=== PATIENT | female | born 1995 | race Caucasian/White ===

== ENCOUNTER 2024-08-02 16:22 | Emergency (ER) | payer BC, SELFPAY ==
--- OUTSIDE RECORDS SUMMARY | 2024-08-02 16:26 | XMS_ITS | Encounter Summary ---
Author Organization [facility] Address [facility] [address] Care Team Providers Care Ship Wirer Name Role Phone Domo Suarez MD Unavailable Elizabeth Dempsey Primary Care Provider [phone] Encounter Details Date Type Department Care Team (Late st Contact Info) Description 06/28/2023 YouFetch Message Enc [facility]hab [address] [place], [place] [id number] [facility] Provider Physical Therapy Social History Tobacco Use Types Packs/Day Years Used Date Smoking Tobacco: Never Passive Smoke Exposure: Never Smokeless Tobacco: Never Alcohol Use Standard Drinks/Week Comments Not Currently 0 (1 standard drink = 0.6 oz pur e alcohol) PHQ-2 Answer Date Recorded Patient Health Questionnaire-2 Score 0 12/01/2022 Depression Answer Date Recor ded Last EPDS Total Score 0 01/08/2021 Last EPDS Self Harm Result Never 01/08 Comments No Sex and Gender Information Value Date Recorded Sex Assigned at Not on file Legal Sex Female 3:30 AM CDT Gender Identity Not on file Sexual Orientation Not on file 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 Answer Date of Assessment Author Status No 05/27/2021 3:42 PM REELING OPERATOR Activ e * Do you have serious difficulty walking or climbing stairs? Answer Date of Assessment Author Status No 05/27/2021 3:42 PM Jacinta Duvall RN Active * Do you have difficulty dressing or bathing? Answer Date of Assessment Author Status No 05/27/2021 3:42 PM Jacinta Duvall RN Active * Because of a physical, mental, or emotional condition, do you have difficulty doing errands alone such as visiting a doctor's office or shopping? Answer Date of Assessment Author Status No 05/27/2021 3:42 PM Jacinta Duvall RN Active documented as of this encounter Mental Status * Because of a physical, mental, or emotional condition, do you have serious difficulty concentrating, remembering, or making decisions? Answer Entry Date Author Status No 05/27/2021 3:42 PM Jacinta Duvlal RN Active documented in this encounter Plan of Treatment Upcoming Encounters Date Type Department Care Team (Late st Contact Info) Description 08/16/2024 11:45 AM REELING OPERATOR [facility] [address] [place] [address] [address] Brown PA-C [facility] [address] [place], [place] [address] 10/15/2024 9:30 AM CDT Office Visit [facility] [address] [place], [place] [address] Supa Miranda MD [facility]. [facility] [address] [place], [place] [address] documented as of this encounter Goals Goal Patient Goal Type Associated Problems Recent Progress Patient-Stated? Author Safety Patient/family will have appropriate support at home upon discharge General No Lucila Corey RN documented as of this encounter Visit Diagnoses Not on filedocumented in this encounter Care Teams Ship Wirer Relationship Specialty Start Date End Date Elizabeth Dempsey PA Three [facility]. [address] [place], [place] [phone] PCP - General PHYSICIAN FOREST FIRE EQUIPMENT OPERATOR 05/10/18 Domo Suarez MD [facility] [address] [place], [place] [address] Norris Quality Control Inspector CARDIOVASCULAR DISEASE 11/25/15 documented as of this encounter
--- OUTSIDE RECORDS SUMMARY | 2024-08-02 16:26 | XMS_ITS | Encounter Summary ---
Author Organization [facility] [place] [address] Care Team Providers Care Manager Loss Prevention Name Role Phone Issac Escoto MD Primary Care Provider Unavailable Domo Suarez MD Unavailable Elizabeth Dempsey Primary Care Provider Encounter Details Date Type Department Care Team (Late st Contact Info) Description 07/13/2002 Abstract [facility] Clinics Conversion , Generic Conversion, Social History Tobacco Use Types Packs/Day Years Used Date Smoking Tobacco: Never Assessed Comments Unknown Sex and Gender Information Value Date Recorded Sex Assigned at Not on file Legal Sex Female 3:30 AM CDT Gender Identity Not on file Sexual Orientation Not on file documented as of this encounter Plan of Treatment Upcoming Encounters Date Type Department Care Team (Late st Contact Info) Description 08/16/2024 11:45 AM STATION AIR TRAFFIC CONTROL SPECIALIST Office [facility] THREE [facility], [address] [place], [place] [phone] Valentine Brown PA-C Three [facility] [address] [place], [place] [phone] 10/15/2024 9:30 AM CDT Office Visit [facility], [address] [place], [place] [phone] Supa Miranda MD [facility]. [address] [place], [place] [address] documented as of this encounter Visit Diagnoses Not on filedocumented in this encounter Care Teams Manager Loss Prevention Relationship Specialty Start Date End Date Issac Escoto MD PCP - General FAMILY PRACTICE 11/25/15 05/09/18 Elizabeth Dempsey PA [facility]. [address] [place] [address] PCP - General PHYSICIAN AUTO DAMAGE ESTIMATOR 05/10/18 Domo Suarez MD [facility]. [address] [place] [address] Basil Drill Sergeant CARDIOVASCULAR DISEASE 11/25/15 documented as of this encounter
--- OUTSIDE RECORDS SUMMARY | 2024-08-02 16:26 | XMS_ITS | Encounter Summary ---
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 Answer Date of Assessment Author Status No 05/27/2021 3:42 PM ASSISTANT PROFESSOR OF COMMUNICATION Activ e * Do you have serious [...] 3:42 PM Jacinta Duvall RN Active documented in this encounter Plan of Treatment Upcoming Encounters Date Type Department Care Team (Late st Contact Info) Description 08/16/2024 11:45 AM ASSISTANT PROFESSOR OF COMMUNICATION Office [facility] [address] [place] [address] Valentine Borwn PA-C [facility] [address] [place], [place] [address] 10/15/2024 9:30 AM CDT Office [facility], [facility] [address] [place], [place] [address] Supa Miranda MD [facility]. [facility] [address] [place], [place] [address] documented as of this encounter Goals Goal Patient Goal Type Associated Problems Recent Progress Patient-Stated? Author Safety Patient/family will have appropriate support at home upon discharge General No Lucila Corey RN documented as of this encounter Visit Diagnoses Not on filedocumented in this encounter Care Teams Jammer Hooker Relationship Specialty Start Date End Date Elizabeth Dempsey PA Three [facility]. [address] [place], [place] [phone] PCP - General PHYSICIAN MOLDER MEAT 05/10/18 Domo Suarez MD Three [facility] [address] [place], [place] [address] [employer] Drill Operator CARDIOVASCULAR DISEASE 11/25/15 documented as of this encounter
--- OUTSIDE RECORDS SUMMARY | 2024-08-02 16:26 | XMS_ITS | Encounter Summary ---
Author Organization [facility] Address [facility] [place] [address] Care Team Providers Care Sterile Process Tech Name Role Phone Domo Suarez MD Unavailable Elizabeth Dempsey Primary Care Provider [phone] Encounter Details Date Type Department Care Team (Late st Contact Info) Description 12/21/2022 MyChart Message Enc [facility] [address] [place], [place] [address] [employer], [facility] Provider Air Quality Message Social History Tobacco Use Types Packs/Day Years [...] 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 No / Unsure 12/01/2022 12:54 PM CDT documented as of this encounter Functional Status * RETIRED Are you deaf or do you have serious difficulty hearing Answer Date of Assessment Author Status No 05/27/2021 3:42 PM LEGAL RECORDS MANAGER Activ e * RETIRED Are you blind or do you have serious difficulty seeing, even when wearing glasses? Answer Date of Assessment Author Status No 05/27/2021 3:42 PM LEGAL RECORDS MANAGER Activ e * Do you have serious [...] st Contact Info) Description 08/16/2024 11:45 AM LEGAL RECORDS MANAGER Office Visit [facility] [place] [address] [place] [address] Valentine Brown PA-C [facility] [address] [place] [address] 10/15/2024 9:30 AM CDT Office Visit [facility] [place] [address] [place], [place] [address] Supa Miranda MD [facility]. [place] [address] [place], [place] [address] documented as of this encounter Goals Goal Patient Goal Type Associated Problems Recent Progress Patient-Stated? Author Safety Patient/family will have appropriate support at home upon discharge General No Lucila Corey, JUMA documented as of this encounter Visit Diagnoses Not on filedocumented in this encounter Care Teams Sterile Process Tech Relationship Specialty Start Date End Date Elizabeth Dempsey PA [facility]. [place] [address] [place], [place] [phone] PCP - General PHYSICIAN DIRECTOR OF CASINO MARKETING 05/10/18 Domo Suarez MD [facility]. [address] [place], [place] [phone] Basil Cake Press Operator CARDIOVASCULAR DISEASE 11/25/15 documented as of this encounter
--- OUTSIDE RECORDS SUMMARY | 2024-08-02 16:26 | XMS_ITS | Encounter Summary ---
Author Organization [facility] Address [address] [place] [address] Care Team Providers Care First Officer Name Role Phone Domo Suarez MD Unavailable Elizabeth Dempsey Primary Care Provider [phone] Reason for Visit * Reason Onset Date Comments Medication 07/22/2024 Encounter Details Date Type Department Care Team (Late st Contact Info) Description 07/22/[address] [address] [place] [address] Elizabeth Dempsey PA [address] [place] [address] Medication Social History Tobacco Use Types Packs/Day Years Used Date Smoking Tobacco: Never Passive Smoke Exposure: Never Smokeless Tobacco: Never Alcohol Use Standard Drinks/Week Comments Not Currently 0 (1 standard drink = 0.6 oz pur e alcohol) PHQ-2 Answer Date Recorded Patient Health Questionnaire-2 Score 0 07/22/2024 Depression Answer Date Recor ded Last EPDS Total Score 0 01/08/2021 Last EPDS Self Harm Result Never 01/08 Comments No Sex and Gender Information Value Date Recorded Sex Assigned at Not on file Legal Sex Female 3:30 AM CDT Gender Identity Not on file Sexual Orientation Not on file 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 Answer Date of Assessment Author Status No 05/27/2021 3:42 PM LOOM INSPECTOR Activ e * Do you have serious difficulty walking or climbing stairs? Answer Date of Assessment Author Status No 05/27/2021 3:42 PM LOOM INSPECTOR Jacinta Solis RN Active * Do you have difficulty dressing or bathing? Answer Date of Assessment Author Status No 05/27/2021 3:42 PM LOOM INSPECTOR Jacinta Solis RN Active * Because of a physical, mental, or emotional condition, do you have difficulty doing errands alone such as visiting a doctor's office or shopping? Answer Date of Assessment Author Status No 05/27/2021 3:42 PM LOOM INSPECTOR Jacinta Solis RN Active documented as of this encounter Mental Status * Because of a physical, mental, or emotional condition, do you have serious difficulty concentrating, remembering, or making decisions? Answer Entry Date Author Status No 05/27/2021 3:42 PM LOOM INSPECTOR Jacinta Solis RN Active documented in this encounter Progress Notes * Orly Matamoros LPN - 07/22/2024 2:50 PM CST Jacinta from [facility] called pt is checking on status of AB from [facility] from [facility] today INSPECTOR * Aaliyah Shaw - 07/22/2024 11:58 AM CST Patient called at 1156 am, and said that she was seen this am around 0840 am, and her pharmacy still does not have her medication. Can someone please look into this and let the patient know when it is sent. INSPECTOR documented in this encounter Plan of Treatment Upcoming Encounters Date Type Department Care Team (Late st Contact Info) Description 08/16/2024 11:45 AM LOOM INSPECTOR Office Visit [facility], [address] [place] [address] Valentine Brown PA-C Three [facility] [address] [place] [address] 10/15/2024 9:30 AM CDT Office Visit [facility] THREE [facility], [address] [place] [address] Supa Miranda MD Three [facility]. [address] [place], [place] [address] documented as of this encounter Goals Goal Patient Goal Type Associated Problems Recent Progress Patient-Stated? Author Safety Patient/family will have appropriate support at home upon discharge General No Lucila Corey RN documented as of this encounter Visit Diagnoses Not on filedocumented in this encounter Care Teams First Officer Relationship Specialty Start Date End Date Elizabeth Dempsey PA Three [facility]. [facility] [address] [place], [place] [address] PCP - General PHYSICIAN HAND MOLDER MEAT 05/10/18 Domo Suarez MD [facility]. [facility] [address] [place] [address] Sumner Meat Puller CARDIOVASCULAR DISEASE 11/25/15 documented as of this encounter
--- OUTSIDE RECORDS SUMMARY | 2024-08-02 16:26 | XMS_ITS | Encounter Summary ---
Author Organization [facility] Address [facility] [place] [address] Care Team Providers Care Applied Exercise Physiologist Name Role Phone Issac Escoto MD Primary Care Provider Unavailable Domo Suarez MD Unavailable Elizabeth Dempsey Primary Care Provider [phone] Encounter Details Date Type Department Care Team (Late st Contact Info) Description 12/22/2008 Abstract [facility] Clinics Conversion , Generic Conversion, Social History [...] st Contact Info) Description 08/16/2024 11:45 AM MANAGER DATA Office Visit [facility] THREE [facility], [address] [place], [place] [phone] Valentine Brown PA-C Three [facility] [address] [place], [place] [phone] 10/15/2024 9:30 AM CDT Office Visit [facility], [address] [place], [place] [phone] Supa Miranda MD [facility]. [address] [place], [place] [address] documented as of this encounter Visit Diagnoses Not on filedocumented in this encounter Care Teams Applied Exercise Physiologist Relationship Specialty Start Date End Date Issac Escoto MD PCP - General FAMILY PRACTICE 11/25/15 05/09/18 Elizabeth Dempsey PA [facility]. [address] [place] [address] PCP - General PHYSICIAN TUBE LASER OPERATOR 05/10/18 Domo Suarez MD [facility]. [address] [place] [address] Basil Grinding Room Supervisor CARDIOVASCULAR DISEASE 11/25/15 documented as of this encounter
--- OUTSIDE RECORDS SUMMARY | 2024-08-02 16:26 | XMS_ITS | Encounter Summary ---
Author Organization [facility] Address [facility] [place] [address] Care Team Providers Care Integration Architect Name Role Phone Issac Escoto MD Primary Care Provider Unavailable Domo Suarez MD Unavailable Elizabeth Dempsey Primary Care Provider [phone] Encounter Details Date Type Department Care Team (Late st Contact Info) Description 01/05/2009 Abstract [facility] Clinics Conversion , Generic Conversion, Social History [...] st Contact Info) Description 08/16/2024 11:45 AM STORAGE BATTERY INSPECTOR AND TESTER Office [facility] THREE [facility], [address] [place], [place] [phone] Valentine Brown PA-C Three [facility] [address] [place], [place] [phone] 10/15/2024 9:30 AM CDT Office [facility], [address] [place], [place] [phone] Supa Miranda MD [facility]. [address] [place], [place] [phone] documented as of this encounter Visit Diagnoses Not on filedocumented in this encounter Care Teams Integration Architect Relationship Specialty Start Date End Date Issac Escoto MD PCP - General FAMILY PRACTICE 11/25/15 05/09/[address] [facility]. [address] [place] [address] PCP - General PHYSICIAN LIBRARY CLERK 05/10/[address] [facility]. [address] [place] [address] Basil Mechatronics Technician CARDIOVASCULAR DISEASE 11/25/15 documented as of this encounter
--- OUTSIDE RECORDS SUMMARY | 2024-08-02 16:26 | XMS_ITS | Encounter Summary ---
Author Organization [facility] Address [address] [place] [address] Care Team Providers Care Tea Plantation Worker Name Role Phone Domo Suarez MD Unavailable Elizabeth Dempsey Primary Care Provider [phone] Encounter Details Date Type Department Care Team (Late st Contact Info) Description 10/27/2022 [employer] Message [address] [address] [facility] Schedule Appointment for Annual Physical Social History Tobacco Use Types Packs/Day Years Used Date Smoking Tobacco: Never Passive Smoke Exposure: Never Smokeless Tobacco: Never Alcohol Use Standard Drinks/Week Comments Not Currently 0 (1 standard drink = 0.6 oz pur e alcohol) PHQ-2 Answer Date Recorded Patient Health Questionnaire-2 Score 0 10/17/2022 Depression Answer Date Recor ded Last EPDS Total Score 0 01/08/2021 Last EPDS Self Harm Result Never 01/08 Comments No Sex and Gender Information Value Date Recorded Sex Assigned at Not on file Legal Sex Female 3:30 AM CDT Gender Identity Not on file Sexual Orientation Not on file 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 No / Unsure 10/17/2022 6:54 AM CDT documented as of this encounter Functional Status * RETIRED Are you deaf or do you have serious difficulty hearing Answer Date of Assessment Author Status No 05/27/2021 3:42 PM COMPUTER SCIENTIST Activ e * RETIRED Are you blind or do you have serious difficulty seeing, even when wearing glasses? Answer Date of Assessment Author Status No 05/27/2021 3:42 PM COMPUTER SCIENTIST Activ e * Do you have serious [...] st Contact Info) Description 08/16/2024 11:45 AM COMPUTER SCIENTIST Office Visit [facility] [address] [place], [place] [address] Valentine Brown PA-C [facility] [address] [place], [place] [address] 10/15/2024 9:30 AM CDT Office [facility] [address] [place], [place] [address] Supa Miranda MD [facility]. [facility] [address] [place], [place] [address] documented as of this encounter Goals Goal Patient Goal Type Associated Problems Recent Progress Patient-Stated? Author Safety Patient/family will have appropriate support at home upon discharge General No Lucila Corey RN documented as of this encounter Visit Diagnoses Not on filedocumented in this encounter Care Teams Tea Plantation Worker Relationship Specialty Start Date End Date Elizabeth Dempsey PA [facility]. [facility] [address] [facility], [place] [phone] PCP - General PHYSICIAN SAMPLE SAWYER 05/10/18 Domo Suarez MD [facility]. [facility] [address] [place], [place] [phone] Basil Religious Education Coordinator CARDIOVASCULAR DISEASE 11/25/15 documented as of this encounter
--- OUTSIDE RECORDS SUMMARY | 2024-08-02 16:26 | XMS_ITS | Encounter Summary ---
Author Organization [facility] Address [address] [place] [address] Care Team Providers Care Flight Manager Name Role Phone Domo Suarez MD Unavailable Elizabeth Dempsey Primary Care Provider [phone] Encounter Details Date Type Department Care Team (Late st Contact Info) Description 02/07/2024 Hospital Orders Only [facility] Poolroom/Poolhall Manager [place], [place] [id number] Melody Miranda MD [facility]. 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 Answer Date of Assessment Author Status No 05/27/2021 3:42 PM MARKING DEVICES ASSEMBLER Activ e * Do you have serious [...] Duvall RN Active documented in this encounter H&P Notes * Melody Miranda MD - 02/07/2024 8:09 PM CDT Attending Provider: No att. providers found PCP: KURT GABRIEL Ana Cooper is an 28-year-old female. Reason for Admission: * No active hospital problems. * Chief complaint: Palpitations. This is a referral from KURT Gabriel Assessment and plan: In summary, Ana Cooper is here today for evaluation regarding palpitations. She has had worsening shortness of breath with exertion as well as palpitations. She has a diagnoesis of moderate to severe MR on TTE with prolapse. Will order AMBER to assess MV. Awaiting MCOT results - her palpitations may be related to MV and need to screen for AF. We will see her back in 3 months to reassess. Thank you for this interesting consultation. History of present illness: I had the pleasure of seeing your patient,Ana Cooper, for evaluation of palpitations. As you are aware, she is a 28-year-old female with a history of mitral regurgitation and palpitations. She has noted palpitations and increased tachycardia. She notes that her exertional tolerance is slightly worse. She denies PND, orthopnea, LE edema, cough, hemoptysis. Past Medical History: Diagnosis Date Asthma (HHS/HCC) 06/30/2014 exercise induced Cellulitis of nares Chondromalacia, patella right knee Exercise-induced asthma (HHS/HCC) Mitral regurgitation Murmur Nephrolithiasis Nonrheumatic mitral (valve) prolapse Preeclampsia (HHS/HCC) Preeclampsia (HHS/HCC) Varicella Allergies: Review of patient's allergies indicates: No Known Allergies Social History Tobacco Use Smoking status: Never Passive exposure: Never Smokeless tobacco: Never Substance Use Topics Alcohol use: Not Currently Past Surgical History: Procedure Laterality Date TONSILLECTOMY 2010 Family History Problem Relation Name Age of Onset Hypertension Mother Rheumatoid Arthritis Mother Lupus Mother Hyperlipidemia Father Anxiety Father Asthma Father Other (bipolar) Father Diabetes Maternal Grandmother Kidney Stones Maternal Grandmother Heart Attack Maternal Grandfather Other (peptic ulcer) Maternal Grandfather Kidney Stones Paternal Grandmother Parkinson's Disease Paternal Grandfather CHF Paternal Grandfather Rheumatoid Arthritis Maternal Aunt Thyroid Paternal Aunt Travel Exposure: Current Outpatient Medications on File Prior to Visit Medication Sig metoprolol succinate ER (TOPROL XL) 25 MG 24 hr tablet Take 1 tablet (25 mg total) by mouth daily. Multiple Vitamin (MULTIVITAMIN ADULT OR) Saccharomyces boulardii (PROBIOTIC) 250 MG Cap Take 1 capsule by mouth daily. probiotic No current facility-administered medications on file prior to visit. currently . Review of Systems Constitutional: Negative for chills, fever, malaise/fatigue and weight loss. Eyes: Negative for blurred vision and double vision. Physical Exam Constitutional: General: She is not in acute distress. Appearance: She is well-developed. HENT: Nose: No mucosal edema. Mouth/Throat: Pharynx: No oropharyngeal exudate. Neck: Vascular: No carotid bruit or JVD. Cardiovascular: Rate and Rhythm: Normal rate and regular rhythm. No extrasystoles are present. Heart sounds: S1 normal and S2 normal. No murmur heard. No gallop. Pulmonary: Effort: Pulmonary effort is normal. No respiratory distress. Breath sounds: Normal breath sounds. Abdominal: Palpations: There is no mass. Tenderness: There is no abdominal tenderness. Musculoskeletal: General: No deformity. Cervical back: Neck supple. Right lower leg: No edema. Left lower leg: No edema. Skin: General: Skin is warm and dry. Findings: No erythema. Neurological: Mental Status: She is alert and oriented to person, place, and time. Psychiatric: Behavior: Behavior normal. Thought Content: Thought content normal. MELODY MIRANDA MD 02/07/2024 documented in this encounter Plan of Treatment Upcoming Encounters Date Type Department Care Team (Late st Contact Info) Description 08/16/2024 11:45 AM MARKING DEVICES ASSEMBLER Office Visit [facility], [address] [place], [place] [id number] Valentine Brown PA-C [facility] [address] [place], [place] [id number] 10/15/2024 9:30 AM CDT Office Visit [facility], [address] [place], [place] [id number] Melody Miranda MD [facility]. [address] [place], [place] [id number] documented as of this encounter Goals Goal Patient Goal Type Associated Problems Recent Progress Patient-Stated? Author Safety Patient/family will have appropriate support at home upon discharge General Lucila Valles RN documented as of this encounter Visit Diagnoses Not on filedocumented in this encounter Care Teams Flight Manager Relationship Specialty Start Date End Date Elizabeth Dempsey PA [facility]. [address] [place], [place] [address] PCP - General PHYSICIAN SUPERVISOR HANGING AND TRIMMING 05/10/18 Domo Suarez MD [facility]. [address] [place] [address] Basil Application Security Architect CARDIOVASCULAR DISEASE 11/25/15 documented as of this encounter
--- OUTSIDE RECORDS SUMMARY | 2024-08-02 16:27 | XMS_ITS | Clinical Summary ---
Author Organization [facility] Address [address] [place] [address] Care Team Providers Care Food Safety Director Name Role Phone Elizabeth Dempsey Primary Care Provider [phone] Source Comments [facility],non-owned Affiliates and Associated Physician Practices is amultiple site organization consisting of ambulatory clinics and hospital sitesin [place], [place], [place] and [place]. This disclosure is being madepursuant to the Care Everywhere program and may not contain all information available regarding this patient. Last updated 18.[facility] Allergies No known active allergies Medications * Be aware that medications may not be up to date on this document. Alwaysverify current medications with the patient. Medication Sig Dispensed Refills Start Date End Date Status etodolac (LODINE) 400 MG tablet Take 400 mg by mouth 2 times daily. Active amoxicillin-clavulana te (AUGMENTIN) 875-125 MG tablet Take 875 mg by mouth 2 times daily with breakfast and dinner. Active Social History Tobacco Use Types Packs/Day Years Used Date Smoking Tobacco: Never Assessed Sex and Gender Information Value Date Recorded Sex Assigned at Not on file Gender Identity Not on file Sexual Orientation Not on file Last Filed Vital Signs Vital Sign Reading Time Taken Comments Blood Pressure 130/74 01/27/2022 12:27 PM CDT Pulse 81 01/27/2022 12:27 PM CDT Temperature 37.1 C (98.7 F) 01/27/2022 12:27 PM CDT Respiratory Rate 18 01/27/2022 12:27 PM CDT Oxygen Saturation 97% 01/27/2022 12:27 PM CDT Inhaled Oxygen Concentration - - Weight 64.9 kg (143 lb) 01/27/2022 12:27 PM CDT Height 162.6 cm (5' 4 ) 01/27/2022 12:27 PM CDT Body Mass Index 24.55 01/27/2022 12:27 PM CDT Plan of Treatment Health Maintenance Due Date Last Done Comments PAP SMEAR 1995 HIV SCREENING 2010 HEPATITIS C SCREENING 02/09/2013 DTAP/TDAP/TD VACCINES (1 - Tdap) 2014 HEPATITIS B VACCINE (1 of 3 - 19+ 3-dose series) 2014 COVID-19 VACCINE (2 - 2023-2 5 season) 2024 05/25/2021 INFLUENZA VACCINE (#1) 2024 5, 04/19/2011 DEPRESSION SCREENING 06/26/2024 ZOSTER VACCINE (1 of 2) 2045 HIB VACCINE Aged Out No longer eligi ble based on patient's age to complete this topic HPV VACCINE Aged Out No longer eligi ble based on patient's age to complete this topic MENINGOCOCCAL (Group B) VACCINE Aged Out No longer eligible b ased on patient's age to complete this topic MENINGOCOCCAL VACCINE Aged Out No leslie avis eligible based on patient's age to complete this topic PNEUMOCOCCAL VACCINE Aged Out No long er eligible based on patient's age to complete this topic Care Teams Food Safety Director Relationship Specialty Start Date End Date Elizabeth Dempsey PA [address] [address] PCP - General Physician Hematologist 01/27/22
--- OUTSIDE RECORDS SUMMARY | 2024-08-02 16:27 | XMS_ITS | Clinical Summary ---
Author Organization [facility] Address [address] [place] [address] Phone Care Team Providers Care Fabric Worker Supervisor Name Role Phone [facility], External Provider Primary Care Provider U navailable Allergies No known active allergies Medications multivitamin (DAILY-JOSE ARMANDO) tablet Take 1 Tablet by mouth daily. Active L. acidophilus/L. rhamnosus (PROBIOTIC ORAL) Take by mouth. Active progesterone micronized (Prometrium) 200 mg Capsule Take one capsule (200mg) by mouth at bedtime on cycle day 18-. 30 Capsule 3 08/02/2024 Active Active Problems Patient Care Coordination No te Formatting of this note migh t be different from the original. Gabe Leach MD--Communications Writer ([facility] @ ) Problem Noted Date Diagnosed Date Mass of upper inner quadrant of right breast Mitral valve prolapse 02/21/2019 Chest pain 02/21/2019 Encounters Date Type Department Care Team Description 08/02/2024 10:00 AM CUSTOMER SPECIALIST Office Visit [facility] AUTOMATIC TYPEWRITER INSPECTOR - [address] [address] Judie Valverde MD PCOS (polycystic ovarian syndrome) (Primary Dx); Oligomenorrhea, unspecified type; Hirsutism; Overweight (BMI 25.0-29.9) from Last 3 Months Immunizations Immunization Administration Dates Next Due (KINRIX/QUADRACEL)(4 - 6 YRS ) DIPHTHERIA, TETANUS TOXOIDS AND ACELLULAR PERTUSSIS VACCINE, POLIO, INACTIVATED (DTAP-IPV) (PF) IM 02/19/2001 (PEDIARIX)(6 WKS-6 YRS) DIPT HERIA, TETANUS TOXOIDS, ACELLULAR PERTUSSIS, HEPATITIS B, AND INACTIVATED POLIOVIRUS VACCINE (FEDB-AIAY-NHW), 0.5ML, IM 02/19/2001,06/11/1996,1995,1994,1995,1995,1995 (PROQUAD)(12 MOS-12 YRS)SHANDRA LES, MUMPS, RUBELLA, AND VARICELLA VIRUS VACCINE. 0.5 ML, SUBCUT 04/10/2015,02/19/2001,06/11/1996 Hepatitis B Vaccine 1995,1995,1994 Family History Medical History Relation Name Comments Bipolar Disorder Father Heart Attack Maternal Grandfather Breast Cancer Neg Hx Colon Cancer Neg Hx Relation Name Status Comments Father Alive Maternal Grandfather Mother Alive Social History Tobacco Use Types Packs/Day Years Used Date Smoking Tobacco: Never Alcohol Use Standard Drinks/Week Comments Yes 0 (1 standard drink = 0.6 oz pur e alcohol) rarely Comments No Sex and Gender Information Value Date Recorded Sex Assigned at Not on file Legal Sex Female 10:12 AM CDT Gender Identity Not on file Sexual Orientation Not on file Last Filed Vital Signs Vital Sign Reading Time Taken Comments Blood Pressure 130/80 08/02/2024 10:06 AM CUSTOMER SPECIALIST Pulse 97 09/03/2021 9:22 AM CUSTOMER SPECIALIST Temperature 37.2 C (99 F) 09/03/2021 9:22 AM CUSTOMER SPECIALIST Respiratory Rate 15 09/03/2021 9:22 AM CUSTOMER SPECIALIST Oxygen Saturation 98% 09/03/2021 9:22 AM CUSTOMER SPECIALIST Inhaled Oxygen Concentration - - Weight 78 kg (172 lb) 08/02/2024 10:06 AM CUSTOMER SPECIALIST Height 162.6 cm (5' 4 ) 08/02/2024 10:06 AM CUSTOMER SPECIALIST Body Mass Index 29.52 08/02/2024 10:06 AM CUSTOMER SPECIALIST Plan of Treatment Upcoming Encounters Date Type Department Care Team (Late st Contact Info) Description 11/29/2024 12:15 PM CDT Office Visit [facility] AUTOMATIC TYPEWRITER INSPECTOR - [address] [place] [address] [place] [address] [address] [place] [address] [phone] (work) Health Maintenance Due Date Last Done Comments CERVICAL CANCER SCREENING 02/15/2016 INFLUENZA VACCINE (#1) 2024 COVID-19 Vaccine (2 2023-2 5 season) 2024 05/25/2021 DTAP/TDAP/TD VACCINES (8 - T d or Tdap) 04/10/2025 04/10/2015, 01/11/2010, 02/19/2001, Additional history exists HEPATITIS B VACCINES Completed 02/19/2001, 06/11/1996, 1995, Additional history exists HPV VACCINES Completed 08/15/2008, 03/27, 02/13/2008 Insurance [employer] TRADITIONAL [facility] EPO Care Teams Fabric Worker Supervisor Relationship Specialty Start Date End Date [facility], External Provider [address] [place] [address] PCP - General 02/21/19
--- OUTSIDE RECORDS SUMMARY | 2024-08-02 16:27 | XMS_ITS | Encounter Summary ---
Author Organization [facility] Address [facility] [place] [address] Care Team Providers Care Real Estate Agency Licensee Name Role Phone Issac Escoto MD Primary Care Provider Unavailable Domo Suarez MD Unavailable Elizabeth Dempsey Primary Care Provider [phone] Encounter Details Date Type Department Care Team (Late st Contact Info) Description 07/10/2015 Abstract [facility] CONVERSION [address] [place] [address] , Generic ConversionMD Social History Tobacco Use Types Packs/Day Years Used Date Smoking Tobacco: Never Comments Unknown Sex and Gender Information Value Date Recorded Sex Assigned at Not on file Legal Sex Female 3:30 AM CDT Gender Identity Not on file Sexual Orientation Not on file documented as of this encounter Plan of Treatment Upcoming Encounters Date Type Department Care Team (Late st Contact Info) Description 08/16/2024 11:45 AM POST CLOSER Office Visit [facility], [address] [place], [place] [phone] Valentine Brown PA-C [facility] [address] [place], [place] [address] 10/15/2024 9:30 AM CDT Office Visit [facility], [address] [place] [address] Supa Miranda MD Three [facility]. [address] [place] [address] documented as of this encounter Visit Diagnoses Not on filedocumented in this encounter Care Teams Real Estate Agency Licensee Relationship Specialty Start Date End Date Issac Escoto MD PCP - General FAMILY PRACTICE 11/25/15 05/09/18 Elizabeth Dempsey PA Three [facility]. [facility] [address] [place] [address] PCP - General PHYSICIAN COMPLIANCE TESTING ANALYST 05/10/18 Domo Suarez MD [facility]. [facility] [address] [place] [address] Orlando Tar Heater CARDIOVASCULAR DISEASE 11/25/15 documented as of this encounter
--- OUTSIDE RECORDS SUMMARY | 2024-08-02 16:27 | XMS_ITS | Patient Health Summary ---
Author Organization [facility] Address [address] [place] [address] Care Team Providers Care Raisin Washer Name Role Phone Elizabeth Dempsey Primary Care Provider [phone] Note from Formerly named [facility],non-owned Affiliates and Associated Physician Practices is amultiple site organization consisting of ambulatory clinics and hospital sitesin [place], [place], [place] and [place]. This disclosure is being madepursuant to the Care Everywhere program and may not contain all information available regarding this patient. Last updated 18.[facility] Allergies No known active allergies Medications * Be aware that medications may not be up to date on this document. Alwaysverify current medications with the patient. * etodolac (LODINE) 400 MG tablet Take 400 mg by mouth 2 times daily. * amoxicillin-clavulanate (AUGMENTIN) 875-125 MG tablet Take 875 mg by mouth 2 times daily with breakfast and dinner. Social History Tobacco Use Types Packs/Day Years [...] Mass Index 24.55 01/27/2022 12:27 PM CDT Procedures * CARDIAC EKG ORDER(Performed 01/30/2022) * XR CHEST 2VW(Performed 01/27/2022) Performed for Chest pain, unspecified type * URINALYSIS REFLEX MICROSCOPIC REFLEX CULTURE(Performed 01/27/2022) * TROPONIN I(Performed 01/27/2022) * COMPREHENSIVE METABOLIC PANEL(Performed 01/27/2022) * CBC W AUTO DIFFERENTIAL(Performed 01/27/2022) * EKG 12-LEAD(Performed 01/27/2022) Performed for Chest pain, unspecified type * XR ANKLE LEFT 2VW(Performed 02/08/2010) Performed for Pain in Joint, Ankle and Foot * XR ANKLE RIGHT 2VW(Performed 02/08/2010) Performed for Pain in Joint, Ankle and Foot Results * CARDIAC EKG ORDER (01/30/2022 6:07 PM CDT) Narrative 01/30/2022 6:07 PM CDT Ordered by an unspecified provider. Scanned Document CARDIAC SERVICES ORD ERABLES * XR CHEST PA AND LATERAL (01/27/2022 1:30 PM CDT) Anatomical Region Laterality Modality Chest Radiographic Odalis ging 01/27/2022 1:40 PM CDT Impressions 01/27/2022 1:40 PM CDT IMPRESSION: No active disease. > Interpreting Provider: Tin Lopez on 01/27/2022 1:40 PM Narrative 01/27/2022 1:40 PM CDT PROCEDURE: XR CHEST 2VW, DATE/TIME OF EXAM: 01/27/2022 1:39 PM, LOCATION [facility] INDICATION: Chest pain. Shortness of breath. Findings: There are no old studies available for comparison. The lungs are clear of infiltrate. There are no pleural effusions or pneumothorax. The heart size and pulmonary vascularity are normal. Procedure Note Tin Lopez MD - 01/27/2022 PROCEDURE: XR CHEST 2VW, DATE/TIME OF EXAM: 01/27/2022 1:39 PM, LOCATION [facility] INDICATION: Chest pain. Shortness of breath. Findings: There are no old studies available for comparison. The lungsare clear of infiltrate. There are no pleural effusions or pneumothorax. The heart size and pulmonary vascularity are normal. IMPRESSION: No active disease. > Interpreting Provider: Tin Lopez on 01/27/2022 1:40 PM Velvet Madison Anuja SLIDE FORMING MACHINE TENDER-BARREL LATHE OPERATOR INSIDE DIAGNOSTIC IMAG ING ORDERABLES * URINALYSIS REFLEX MICROSCOPIC REFLEX CULTURE (01/27/2022 1:14 PM CDT) Color UA Yellow Straw, Yellow 01/27/2022 1:22 PM CDT [facility] Clarity UA Clear Clear 01/27/2022 1:22 PM CDT [facility] Glucose UA Negative Negative 01/27/2022 1:22 PM CDT [facility] Bilirubin UA Negative Negative 01/27/2022 1:22 PM CDT [facility] Ketone UA Negative Negative 01/27/2022 1:22 PM CDT [facility] Specific [place] UA 1.014 1.005 - 1.030 01/27/2022 1:22 PM CDT [facility] Blood UA Negative Negative 01/27/2022 1:22 PM CDT [facility] pH UA 6.0 5.0 - 8.0 pH 01/27/2022 1:22 PM CDT [facility] Protein UA Negative Negative 01/27/2022 1:22 PM CDT [facility] Urobilinogen UA Negative Negative mg/dL 01/27/2022 1:22 PM CDT [facility] Nitrite UA Negative Negative 01/27/2022 1:22 PM CDT [facility] Leukocyte UA Negative Negative 01/27/2022 1:22 PM CDT [facility] Urine Microscopy Urine microscopy not indicated 01/27/2022 1:22 PM CDT [facility] Reflex Status Culture not indicated 01/27/2022 1:22 PM CDT [facility] Urine URINE SPECIMEN OBTAINED BY CLEAN CATCH PROCEDURE / Unknown Collection / Unknown 01/27/2022 1:14 PM CDT 01/27/2022 1:18 PM CDT Narrative [facility] - 01/27/2022 1:22 PM CDT Velvet Licea APRN-BARREL LATHE OPERATOR INSIDE LAB - URINALYSI S ORDERABLES Performing Organization Address [facility] Co de Phone Number [facility] [address] [place] [address] [phone] * TROPONIN I (01/27/2022 12:38 PM CDT) [facility] Troponin I <0.010 <0.038 ng/mL 01/27/2022 1:12 PM CDT [facility] Blood BLOOD SPECIMEN / Unknown Venipuncture / Unknown 01/27/2022 12:38 PM CDT 01/27/2022 12:44 PM CDT Velvet Licea APRN-BARREL LATHE OPERATOR INSIDE LAB - CHEMISTRY ORDERABLES Performing Organization Address [facility] Co de Phone Number [facility] [address] [place] [address] [phone] * CBC W AUTO DIFFERENTIAL (01/27/2022 12:38 PM CDT) [facility] WBC 7.1 4.4 - 10.7 x10E9/L 01/27/2022 12:51 PM CDT [facility] WBC Corrected 01/27/2022 12:51 PM CDT [facility] RBC 4.66 3.80 - 5.20 x10E12/L 01/27/2022 12:51 PM CDT [facility] Hemoglobin 14.6 12.0 - 15.6 gm/dL 01/27/2022 12:51 PM CDT [facility] Hematocrit 41.6 35.9 - 45.5 % 01/27/2022 12:51 PM CDT [facility] MCV 89.3 80.7 - 98.3 fl 01/27/2022 12:51 PM CDT [facility] MCH 31.3 26.7 - 34.0 pg 01/27/2022 12:51 PM CDT [facility] MCHC 35.1 30.8 - 35.9 gm/dL 01/27/2022 12:51 PM [facility] Platelet Count 204 153 - 416 x10E9/L 01/27/2022 12:51 PM [facility] RDW-CV 12.1 12.1 - 14.9 % 01/27/2022 12:51 PM [facility] MPV 11.8 9.4 - 12.9 fl 01/27/2022 12:51 PM [facility] Neutrophils % 58.3 44.0 - 73.0 % 01/27/2022 12:51 PM [facility] Lymphocytes % 34.2 20.0 - 43.0 % 01/27/2022 12:51 PM [facility] Monocytes % 5.2 5.0 - 13.0 % 01/27/2022 12:51 PM [facility] Eosinophils % 1.4 0.0 - 6.0 % 01/27/2022 12:51 PM [facility] Basophils % 0.6 0.0 - 2.0 % 01/27/2022 12:51 PM [facility] Immature Granulocytes 0.3 0 - 1 % 01/27/2022 12:51 PM [facility] Neutrophil Absolute 4.12 2.01 - 7.14 x10E9/L 01/27/2022 12:51 PM [facility] Lymphocytes Absolute 2.42 1.07 - 3.94 x10E9/L 01/27/2022 12:51 PM [facility] Monocytes Absolute 0.37 0.26 - 1.07 x10E9/L 01/27/2022 12:51 PM [facility] Eosinophils Absolute 0.10 0 - 0.47 x10E9/L 01/27/2022 12:51 PM [facility] Basophils Absolute 0.04 0 - 0.08 x10E9/L 01/27/2022 12:51 PM [facility] Immature Granulocytes Absolute 0.02 0.00 - 0.06 x10E9/L 01/27/2022 12:51 PM [facility] nRBC Auto 0 /100 WBC 01/27/2022 12:51 PM [facility] Blood BLOOD SPECIMEN / Unknown Venipuncture / Unknown 01/27/2022 12:38 PM CDT 01/27/2022 12:44 PM CDT Velvet Licea APRN-BARREL LATHE OPERATOR INSIDE LAB - HEMATOLOG Y ORDERABLES [facility] [address] [place] [address] * (ABNORMAL) COMPREHENSIVE METABOLIC PANEL (01/27/2022 12:38 PM CDT) [facility] Glucose 110(H) 70 - 105 mg/dL 01/27/2022 1:09 PM CDT [facility] Sodium 138 136 - 145 mmol/L 01/27/2022 1:09 PM CDT [facility] Potassium 3.8 3.5 - 5.1 mmol/L 01/27/2022 1:09 PM CDT [facility] Chloride 104 98 - 107 mmol/L 01/27/2022 1:09 PM CDT [facility] CO2 23 23 - 31 mmol/L 01/27/2022 1:09 PM CDT [facility] Calcium 8.9 8.4 - 10.4 mg/dL 01/27/2022 1:09 PM CDT [facility] Anion Gap 11 8 - 18 mmol/L 01/27/2022 1:09 PM CDT [facility] BUN 14 7 - 18.7 mg/dL 01/27/2022 1:09 PM CDT [facility] Creatinine 0.73 0.57 - 1.11 mg/dL 01/27/2022 1:09 PM CDT [facility] Alkaline Phosphatase 96 40 - 150 U/L 01/27/2022 1:09 PM CDT [facility] ALT 14 0 - 61 U/L 01/27/2022 1:09 PM CDT [facility] AST 16 5 - 34 U/L 01/27/2022 1:09 PM CDT [facility] Protein Total 7.3 6.4 - 8.3 gm/dL 01/27/2022 1:09 PM CDT [facility] Albumin 4.1 3.5 - 5.2 gm/dL 01/27/2022 1:09 PM CDT [facility] Bilirubin Total 0.2 0.2 - 1.2 mg/dL 01/27/2022 1:09 PM CDT [facility] eGFR by CKD-EPI >90 >=90 mL/min/1.7 3 m2 01/27/2022 1:09 PM CDT [facility] Blood BLOOD SPECIMEN / Unknown Venipuncture / Unknown 01/27/2022 12:38 PM CDT 01/27/2022 12:44 PM CDT [facility] CHEMI[facility] ORDERAB[facility] Performing Organization Address [facility] Co de Phone Number [facility] [address] [place] [address] * EKG 12-LEAD (01/27/2022 12:35 PM CDT) Ventricular Rate 73 BPM [facility] Atrial Rate 73 BPM [facility] P-R Interval 152 ms [facility] QRS Duration ms 88 ms [facility] Q-T Interval ms 368 ms [facility] QTC Calculation (Bezet) 405 ms [facility] Calculated P [place] 43 degrees [facility] Calculated R [place] 2 degrees [facility] Calculated T [place] 47 degrees [facility] Interpretation EKG NORMAL SINUS RHYTHM NORMAL ECG NO PREVIOUS ECGS AVAILABLE Confirmed by DO KATZ STEPHANIE ([id number]) on 01/28/2022 11:37:26 AM [facility] 01/27/2022 12:3 5 PM CDT 01/28/2022 11:37 AM CDT Velvet Licea [facility] ECG ORDERABLES Performing Organization Address [facility] Co de Phone Number [facility] * XR ANKLE 2 VW LEFT (02/08/2010 9:58 AM CDT) Anatomical Region Laterality Modality Lower Extremity Radiographic Odalis ging 02/08/2010 11:4 9 AM CDT Impressions 02/08/2010 3:36 PM CDT Normal. D: Luca Rosen M.D. Narrative 02/08/2010 3:36 PM CDT Exam: Left ankle, weight bearing films, 2 views. Date: 02/08/2010 Findings: The bones, soft tissues, and joint spaces of the ankle are normal. Procedure Note Elder Cline MD - 02/08/2010 Exam: Left ankle, weight bearing films, 2 views. Date: 02/08/2010 Findings: The bones, soft tissues, and joint spaces of the ankle are normal. IMPRESSION Normal. D: Luca Rosen M.D. Estee Kelley MD DIAGNOSTIC IMAGING ORDERABLES * XR ANKLE 2 VW RIGHT (02/08/2010 9:57 AM CDT) Anatomical Region Laterality Modality Lower Extremity Radiographic Odalis ging 02/08/2010 11:4 7 AM CDT Impressions 02/08/2010 3:33 PM CDT Normal ankle joint Nonstandard for foot evaluation Image suggests pes planus--Recommend clinical correlation. D: Luca Rosen M.D. Narrative 02/08/2010 3:33 PM CDT Exam: Right ankle, 2 views, weight-bearing films Date: 02/08/2010 Findings: The bones, soft tissues, and joint spaces of the ankle are normal.The lateral calcaneometatarsal angle suggests flattening. Procedure Note Elder Cline MD - 02/08/2010 Exam: Right ankle, 2 views, weight-bearing films Date: 02/08/2010 Findings: The bones, soft tissues, and joint spaces of the ankle are normal.The lateral calcaneometatarsal angle suggests flattening. IMPRESSION Normal ankle joint Nonstandard for foot evaluation Image suggests pes planus--Recommend clinical correlation. D: Luca Rosen M.D. Estee Kelley MD DIAGNOSTIC IMAGING ORDERABLES Care Teams Raisin Washer Relationship Specialty Start Date End Date Elizabeth Dempsey [place] [address] [id number] PCP - General Physician Recruit Instructor 01/27/22
--- OUTSIDE RECORDS SUMMARY | 2024-08-02 16:27 | XMS_ITS | Clinical Summary ---
Author Organization [facility] Address [address] [place] [address] Care Team Providers Care Calcine Furnace Loader Name Role Phone Domo Suarez MD Unavailable Elizabeth Dempsey Primary Care Provider [phone] Allergies No known active allergies Medications Saccharomyces boulardii (PROBIOTIC) 250 MG Cap Take 1 capsule by mouth daily. probiotic Active Multiple Vitamin (MULTIVITAMIN ADULT OR) Active meloxicam (MOBIC) 15 MG tabletIndicatio ns:Chronic left shoulder pain Take 1 tablet (15 mg total) by mouth daily. 30 tablet 4 Active cefdinir (OMNICEF) 300 MG Cap capsuleIndicati ons:Acute non-recurrent frontal sinusitis Take 1 capsule (300 mg total) by mouth 2 (two) times daily. 20 capsule 5 Active predniSONE (DELTASONE) 20 MG tabletIndicatio ns:Acute non-recurrent frontal sinusitis Take 1 tablet (20 mg total) by mouth daily for 5 days. 5 tablet 5 07/27/19 25 Active Problems Problem Noted Date Diagnosed Date Left hip pain 07/26/2022 Acute left-sided low back pain 07/26/2022 Weakness of left lower extremity 08/20/2021 TIA (transient ischemic attack) 05/27/2021 (HHS/HCC) 01/07/2021 Mass of upper inner quadrant of right breast Chest pain 02/21/2019 Headache disorder 02/27/2015 Overview (01/08/2021): Headache disorder Nonrheumatic mitral (valve) prolapse Mitral regurgitation Murmur Exercise-induced asthma (HHS/HCC) Resolved Problems Problem Noted Date Diagnosed Date Resolved Date Asthma (HHS/HCC) 06/30/2014 09/14/2018 Overview (05/10/2018): exercise induced Encounters Date Type Department Care Team Description 07/22/2024 8:40 AM DENTAL SURGEON Office Visit [facility] Family [facility] Internal Medicine - [place] [address] [place] [address] Caroline Cade PA Sinus Problem (Body aches, sinus pressure, occasional cough-x 1 week-pressure to face) 07/22/[address] [address] Elizabeth Dempsey PA Medication 07/22/2024 Travel 05/17/2024 2:22 PM DENTAL SURGEON - 05/17/2024 11:59 PM DENTAL SURGEON Hospital Encounter Health system Non Invasive [place] [address] Supa Miranda MD Discharge Disposition: Home or Self Care (Routine Discharge) 05/17/2024 Travel from Last 3 Months Immunizations Name Administration Dates Next Due Dtap/Hep B/Ipv 02/19/2001, 6,1995, 995,1995,1995,1995 HPV 08/15/2008,04/14/2008,02/13/2008 Hepatitis B 1995,1995,1995 Hib Vaccine, Prp-Omp 06/11/1996,10/01/18 96,1995, 995 Influenza Adult (Generic) 04/19/2011 S[employer]apper ([employer]) COVID-19 AD26 VACCINE 0.5 ML IM SUSP 05/25/2021 MMR (Generic) 04/10/2015,02/19/2001,06/11/1996 Mhauytk-Ryarc-Vxhzlxi-Varice ll Sc Inj 04/10/2015,02/19/2001,06/11/1996 Opv 1995,1995,1995 Polio Ipv (Generic) 02/19/2001 Tdap (Generic) 04/10/2015,01/11/2010 Family History Medical History Relation Comments Alcohol Abuse Father Anxiety Father Asthma Father Depression Father Hyperlipidemia Father Mental Health Father bipolar Father Rheumatoid Arthritis Maternal Aunt Heart Attack Maternal Grandfather peptic ulcer Maternal Grandfather Diabetes Maternal Grandmother Kidney Stones Maternal Grandmother Hypertension Mother Lupus Mother Miscarriages / Stillbirths Mother Rheumatoid Arthritis Mother Thyroid Paternal Aunt CHF Paternal Grandfather Parkinson's Disease Paternal Grandfather Kidney Stones Paternal Grandmother Relation Status Comments Father Alive Maternal Aunt Maternal Grandfather Maternal Grandmother Mother Alive Paternal Aunt Paternal Grandfather Paternal Grandmother Social History Tobacco Use Types Packs/Day Years Used Date Smoking Tobacco: Never Passive Smoke Exposure: Never Smokeless Tobacco: Never Tobacco Cessation:Counseling Given: No Alcohol Use Standard Drinks/Week Comments Not Currently [...] 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 file Not on file Not on file Last Filed Vital Signs Vital Sign Reading Time Taken Comments Blood Pressure 121/74 07/22/2024 9:17 AM DENTAL SURGEON Pulse 75 07/22/2024 9:17 AM DENTAL SURGEON Temperature 36.7 C (98.1 F) 07/22/2024 9:17 AM DENTAL SURGEON Respiratory Rate 20 07/22/2024 9:17 AM DENTAL SURGEON Oxygen Saturation 98% 07/22/2024 9:17 AM DENTAL SURGEON Inhaled Oxygen Concentration - - Weight 77.6 kg (171 lb) 07/22/2024 9:17 AM DENTAL SURGEON Height 162.6 cm (5' 4 ) 07/22/2024 9:17 AM DENTAL SURGEON Body Mass Index 29.35 07/22/2024 9:17 AM DENTAL SURGEON Plan of Treatment Upcoming Encounters Date Type Department Care Team (Late st Contact Info) Description 08/16/2024 11:45 AM DENTAL SURGEON [facility] [address] [place], [place] [address] Valentine Brown PA-C [facility] [address] [place] [address] 10/15/2024 9:30 AM CDT Office Visit [facility] [address] [place], [place] [address] Supa Miranda MD Three [facility]. [facility] [address] [place], [place] [id number] Health Maintenance Due Date Last Done Comments Cervical Cancer Screening Pap Smear (Age 21 to 29) Every 3 Years 1995 Cervical Cancer Screening 1995 Pneumococcal Vaccine: Pediatrics (0 to 5 Years) and At-Risk Patients (6 to 64 Years) (1 of 2 - PCV) 2001 Hepatitis C 2013 Annual Physical 12/02/2023 12/01/2022 COVID-19 Vaccine ( season) 2024 05/25/2021 Influenza Adult (#1) 2024 04/19/2011 DTaP, Tdap and Td Vaccines (8 - Td or Tdap) 04/10/2025 04/10/2015, 01/11/2010, 02/19/2001, Additional history exists Hepatitis B Vaccines Completed 02/19/2001, 06/11/1996, 1995, Additional history exists HPV Vaccines Completed 08/15/2008, 03/27, 02/13/2008 PHQ-2 (Physician [place]) Completed 07/22/2024 Meningococcal B Vaccine Aged Out No l onger eligible based on patient's age to complete this topic Meningococcal Vaccine Aged Out No leslie avis eligible based on patient's age to complete this topic RSV Immunizations Under 20 Months Aged Out No longer eligible based on patient's age to complete this topic Goals Goal Patient Goal Type Associated Problems Recent Progress Patient-Stated? Author Safety Patient/family will have appropriate support at home upon discharge General Lucila Valles automotive service assistant Procedure Name Priority Date/Time Associated Diagnosis Comments USE ECHOCARDIOGRAM Routine 05/17/2024 2: 58 PM DENTAL SURGEON Nonrheumatic mitral valve regurgitation from Last 3 Months Results * USE ECHOCARDIOGRAM (05/17/2024 2:58 PM DENTAL SURGEON) Anatomical Region Laterality Modality Cardiac Echocardiogram 05/17/2024 2:31 PM DENTAL SURGEON Narrative 05/20/2024 6:26 AM DENTAL SURGEON Echocardiography Report Pat.Name: SWAPNIL COOPER Pat.ID: [id number] .Date: 05/17/2024 Exam Time: 2:31:00 PM Study Type:ECHO WITH CARDIAC DOPPLER COMP Height: 64 in Weight: 171 lb BSA: 1.87 m2 Age: 8 1995,29Y Sex: F BP: 125/61 Sonogrphr: Lucero Emery Pat. Stat.:Outpatient Room: OP CPT - 4: [id number] Reason for Study:MITRAL REGURGITATION Procedures: 2D, M-mode, Doppler, Color Flow, The study quality is technically adequate. Race: W ++++++++++++++++++++++++++++++++++++ SUMMARY: ++++++++++++++++++++++++++++++++++++ The left ventricular size is normal. The left ventricular systolic function is normal. Estimated left ventricular ejection fraction is 65-70%. No concentric left ventricular hypertrophy. The septal E/e' is normal at < 8. The lateral E/e' is normal at <8. Left ventricular diastolic function is normal. Wall motion appears normal in all segments. The right ventricular size is normal. Right ventricular systolic function is normal. No evidence of pericardial effusion. The peak pulmonary artery systolic pressure is estimated to be approximately 14.0 mmHg. Inferior vena cava shows >50% collapse with respiration consistent with normal right atrial pressure. Moderate mitral regurgitation. Would assess for any new symptoms. There is moderate prolapse of both mitral valve leaflet(s). ++++++++++++++++++++++++++++++++++++ FINDINGS: ++++++++++++++++++++++++++++++++++++ LV: The left ventricular size is normal. The left ventricular systolic function is normal. Estimated left ventricular ejection fraction is 65-70%. No concentric left ventricular hypertrophy. The septal E/e' is normal at < 8. The lateral E/e' is normal at <8. Left ventricular diastolic function is normal. WM: Wall motion appears normal in all segments. RV: The right ventricular size is normal. Right ventricular systolic function is normal. TAPSE = 24.4mm (<16 mm indicates systolic RV dysfunction). IVS: Intraventricular septum is normal. LA: The left atrial volume is mildly increased (34- 41ml/M2). RA: The right atrial size is normal. IAS: Atrial septum is normal. JESSICA: No evidence of pericardial effusion. AO: Normal aortic root. PA: The peak pulmonary artery systolic pressure is estimated to be approximately 14.0 mmHg. Estimated right atrial pressure of 3 mmHg. SVn: Inferior vena cava is normal. Inferior vena cava shows >50% collapse with respiration consistent with normal right atrial pressure. AV: Structurally normal aortic valve. The aortic valve is trileaflet. No evidence of aortic valve stenosis. No evidence of aortic valve regurgitation. MV: Moderate to severe mitral regurgitation. No evidence of mitral stenosis. There is moderate prolapse of both mitral valve leaflet(s). PV: Structurally normal pulmonic valve. No evidence of pulmonic valve stenosis. No evidence of pulmonic regurgitation. TV: Structurally normal tricuspid valve. A trace-mild tricuspid regurgitation. tricuspid valve stenosis. ++++++++++++++++++++++++++++++++++++ MEASUREMENTS: ++++++++++++++++++++++++++++++++++++ DOPPLER Pulmonary Veins PVnpkVeld 51 cm/s AR-wave velocit 0.23 m/s S1-wave velocit 0.61 m/s PVn A Dur 0.045 second AV Regurg Flow AV TVI 165 cm MV Regurg Flow MV mnPG 85.4 mmHg MV pkPG 101 mmHg MV mnVel 462 cm/s MV pkVel 502 cm/s (60-130)+* PV Regurg Flow PV pkVel 93 cm/s TV Forward Flow TV E/A 1.03 Aortic Valve Cardiovascular 1.92 cm Aortic Root Andressa 2.92 cm LVOT/AoV (SECOND GRADE TEACHER) ( 0.69 Left atrial andressa 4.24 cm AV Antegrade Flow Peak Velocity ( 1.43 m/s Mean Velocity ( 1.05 m/s Velocity Time I 29.3 cm AV Antegrade Flow Simplified Bernoulli Gradient pressu 8.1 mmHg Gradient pressu 4.7 mmHg AV Continuity Equation by Velocity Time Integral Aortic Valve Ar 1.94 cm2 AoV Area Index 1.04 Left Ventricle Stroke Volume ( 57 ml Cardiac Output 3.53 liter per minute LV Antegrade Flow Peak Velocity ( 0.99 m/s Mean Velocity ( 0.73 m/s Velocity Time I 19.7 cm LV Antegrade Flow Simplified Bernoulli Gradient pressu 3.9 mmHg Gradient pressu 2.3 mmHg Mitral Valve Mitral Valve E- 0.257 second Mean Myocardial 11.7 centimeter/second Myocardial Velo 12.1 centimeter/second Ratio of Mitral 6.61 Myocardial Velo 11.2 centimeter/second Ratio of Mitral 6.39 Heart rate 64 Heart beat per minute Ratio of Mitral 6.9 Mitral Valve E 1.25 MV Antegrade Flow Mitral Valve E- 0.77 m/s Velocity Time I 35.6 cm Mitral Valve A- 0.62 m/s Mean Velocity ( 0.55 m/s Peak Velocity ( 1.13 m/s MV Antegrade Flow Simplified Bernoulli Gradient pressu 5.1 mmHg Gradient pressu 1.6 mmHg PV Antegrade Flow Peak Velocity ( 0.94 m/s Mean Velocity ( 0.62 m/s Velocity Time I 19.4 cm PV Vmax (Diasto 0.75 m/s PV Antegrade Flow Simplified Bernoulli Gradient pressu 3.5 mmHg PV PGmax (Systo 2.3 mmHg Gradient pressu 1.7 mmHg PV Regurgitant Flow Pressure gradie 3.5 mmHg Tricuspid Valve Tricuspid Valve 0.57 m/s Tricuspid Valve 0.55 m/s TV Regurgitant Flow MaximumTricuspi 1.63 m/s MaximumTricuspi 10.6 mmHg 2D Left Ventricle LVIDd 5.18 cm (3.6-5.2) LVEDV BP 115 ml LV EDV 110 ml LVESV BP 20.8 ml LV ESV 17 ml LV EF 84.6 % LV EDV 97.9 ml Left Ventricula -14.3 % LV ESV 20.2 ml LV EF 79.4 % LV EF BP 81.9 % Left Ventricula -20.7 % Left Ventricula -17.5 % Left Atrium Left Atrium Vol 38.2 ml/m2 LA Biplane Left Atrium Vol 71.5 ml LA Single Plane Left Atrium albina 5.59 cm Left Atrium albina 5.84 cm Left Atrium Vol 67.8 ml Left Atrium Vol 73 ml LV Teichholz Interventricula 1 cm Left Ventricle 3.05 cm Left Ventricle 1.16 cm Heart rate 67 Heart beat per minute Right Atrium RA sys Area 14.1 cm2 Right Ventricle Right Ventricul 3.35 cm RVIDd 2.61 cm MMODE Tricuspid Valve Tricuspid annul 2.44 cm <Electronic Signature> 05/20/2024 06:26 AM Supa Miranda M.D. Procedure Note Supa Miranda MD - 05/20/2024 Echocardiography Report Pat.Name: SWAPNIL COOPER Pat.ID: [id number] .Date: 05/17/2024 Exam Time: 2:31:00 PM Study Type:ECHO WITH CARDIAC DOPPLER COMP Height: 64 in Weight: 171 lb BSA: 1.87 m2 Age: 8 1995,29Y Sex: F BP: 125/61 Sonogrphr: Lucero Emery Pat. Stat.:Outpatient Room: OP CPT - 4: [id number] Reason for Study:MITRAL REGURGITATION Procedures: 2D, M-mode, Doppler, Color Flow, The study quality is technically adequate. Race: W ++++++++++++++++++++++++++++++++++++ SUMMARY: ++++++++++++++++++++++++++++++++++++ The left ventricular size is normal. The left ventricular systolic function is normal. Estimated left ventricular ejection fraction is 65-70%. No concentric left ventricular hypertrophy. The septal E/e' is normal at < 8. The lateral E/e' is normal at <8. Left ventricular diastolic function is normal. Wall motion appears normal in all segments. The right ventricular size is normal. Right ventricular systolic function is normal. No evidence of pericardial effusion. The peak pulmonary artery systolic pressure is estimated to be approximately 14.0 mmHg. Inferior vena cava shows >50% collapse with respiration consistent with normal right atrial pressure. Moderate mitral regurgitation. Would assess for any new symptoms. There is moderate prolapse of both mitral valve leaflet(s). ++++++++++++++++++++++++++++++++++++ FINDINGS: ++++++++++++++++++++++++++++++++++++ LV: The left ventricular size is normal. The left ventricular systolic function is normal. Estimated left ventricular ejection fraction is 65-70%. No concentric left ventricular hypertrophy. The septal E/e' is normal at < 8. The lateral E/e' is normal at <8. Left ventricular diastolic function is normal. WM: Wall motion appears normal in all segments. RV: The right ventricular size is normal. Right ventricular systolic function is normal. TAPSE = 24.4mm (<16 mm indicates systolic RV dysfunction). IVS: Intraventricular septum is normal. LA: The left atrial volume is mildly increased (34- 41ml/M2). RA: The right atrial size is normal. IAS: Atrial septum is normal. JESSICA: No evidence of pericardial effusion. AO: Normal aortic root. PA: The peak pulmonary artery systolic pressure is estimated to be approximately 14.0 mmHg. Estimated right atrial pressure of 3 mmHg. SVn: Inferior vena cava is normal. Inferior vena cava shows >50% collapse with respiration consistent with normal right atrial pressure. AV: Structurally normal aortic valve. The aortic valve is trileaflet. No evidence of aortic valve stenosis. No evidence of aortic valve regurgitation. MV: Moderate to severe mitral regurgitation. No evidence of mitral stenosis. There is moderate prolapse of both mitral valve leaflet(s). PV: Structurally normal pulmonic valve. No evidence of pulmonic valve stenosis. No evidence of pulmonic regurgitation. TV: Structurally normal tricuspid valve. A trace-mild tricuspid regurgitation. tricuspid valve stenosis. ++++++++++++++++++++++++++++++++++++ MEASUREMENTS: ++++++++++++++++++++++++++++++++++++ DOPPLER Pulmonary Veins PVnpkVeld 51 cm/s AR-wave velocit 0.23 m/s S1-wave velocit 0.61 m/s PVn A Dur 0.045 second AV Regurg Flow AV TVI 165 cm MV Regurg Flow MV mnPG 85.4 mmHg MV pkPG 101 mmHg MV mnVel 462 cm/s MV pkVel 502 cm/s (60-130)+* PV Regurg Flow PV pkVel 93 cm/s TV Forward Flow TV E/A 1.03 Aortic Valve Cardiovascular 1.92 cm Aortic Root Andressa 2.92 cm LVOT/AoV (SECOND GRADE TEACHER) ( 0.69 Left atrial andressa 4.24 cm AV Antegrade Flow Peak Velocity ( 1.43 m/s Mean Velocity ( 1.05 m/s Velocity Time I 29.3 cm AV Antegrade Flow Simplified Bernoulli Gradient pressu 8.1 mmHg Gradient pressu 4.7 mmHg AV Continuity Equation by Velocity Time Integral Aortic Valve Ar 1.94 cm2 AoV Area Index 1.04 Left Ventricle Stroke Volume ( 57 ml Cardiac Output 3.53 liter per minute LV Antegrade Flow Peak Velocity ( 0.99 m/s Mean Velocity ( 0.73 m/s Velocity Time I 19.7 cm LV Antegrade Flow Simplified Bernoulli Gradient pressu 3.9 mmHg Gradient pressu 2.3 mmHg Mitral Valve Mitral Valve E- 0.257 second Mean Myocardial 11.7 centimeter/second Myocardial Velo 12.1 centimeter/second Ratio of Mitral 6.61 Myocardial Velo 11.2 centimeter/second Ratio of Mitral 6.39 Heart rate 64 Heart beat per minute Ratio of Mitral 6.9 Mitral Valve E 1.25 MV Antegrade Flow Mitral Valve E- 0.77 m/s Velocity Time I 35.6 cm Mitral Valve A- 0.62 m/s Mean Velocity ( 0.55 m/s Peak Velocity ( 1.13 m/s MV Antegrade Flow Simplified Bernoulli Gradient pressu 5.1 mmHg Gradient pressu 1.6 mmHg PV Antegrade Flow Peak Velocity ( 0.94 m/s Mean Velocity ( 0.62 m/s Velocity Time I 19.4 cm PV Vmax (Diasto 0.75 m/s PV Antegrade Flow Simplified Bernoulli Gradient pressu 3.5 mmHg PV PGmax (Systo 2.3 mmHg Gradient pressu 1.7 mmHg PV Regurgitant Flow Pressure gradie 3.5 mmHg Tricuspid Valve Tricuspid Valve 0.57 m/s Tricuspid Valve 0.55 m/s TV Regurgitant Flow MaximumTricuspi 1.63 m/s MaximumTricuspi 10.6 mmHg 2D Left Ventricle LVIDd 5.18 cm (3.6-5.2) LVEDV BP 115 ml LV EDV 110 ml LVESV BP 20.8 ml LV ESV 17 ml LV EF 84.6 % LV EDV 97.9 ml Left Ventricula -14.3 % LV ESV 20.2 ml LV EF 79.4 % LV EF BP 81.9 % Left Ventricula -20.7 % Left Ventricula -17.5 % Left Atrium Left Atrium Vol 38.2 ml/m2 LA Biplane Left Atrium Vol 71.5 ml LA Single Plane Left Atrium albina 5.59 cm Left Atrium albina 5.84 cm Left Atrium Vol 67.8 ml Left Atrium Vol 73 ml LV Teichholz Interventricula 1 cm Left Ventricle 3.05 cm Left Ventricle 1.16 cm Heart rate 67 Heart beat per minute Right Atrium RA sys Area 14.1 cm2 Right Ventricle Right Ventricul 3.35 cm RVIDd 2.61 cm MMODE Tricuspid Valve Tricuspid annul 2.44 cm <Electronic Signature> 05/20/2024 06:26 AM Supa Miranda M.D. Supa Miranda MD ECHO Final Result from Last 3 Months Insurance [facility] Advance Directives * Full Code (Latest Code Status on File) Date Activated Date Inactivated Comments 05/27/2021 3:31 PM 05/28/2021 8:11 PM * Full Code Date Activated Date Inactivated Comments 01/07/2021 3:20 AM 01/08/2021 12:43 PM * Full Code Date Activated Date Inactivated Comments 01/06/2021 2:10 PM 01/06/2021 4:44 PM * Full Code Date Activated Date Inactivated Comments 10/29/2020 7:56 PM 10/29/2020 10:10 PM * Full Code Date Activated Date Inactivated Comments 10/29/2020 11:34 AM 10/29/2020 5:57 PM Care Teams Calcine Furnace Loader Relationship Specialty Start Date End Date Elizabeth Dempsey PA [facility]. [facility] [address] [place] [address] PCP - General PHYSICIAN COIN MACHINE SERVICER REPAIRER 05/10/18 Domo Suarez MD Three [facility]. [facility] [address] [place] [address] [place] Operations Logistics Analyst CARDIOVASCULAR DISEASE 11/25/15
--- OUTSIDE RECORDS SUMMARY | 2024-08-02 16:27 | XMS_ITS | Encounter Summary ---
Author Organization [facility] Address [address] [place] [address] Care Team Providers Care Senior Program Manager Name Role Phone Issac Escoto MD Primary Care Provider Unavailable Domo Suarez MD Unavailable Elizabeth Dempsey Primary Care Provider [phone] Encounter Details Date Type Department Care Team (Late st Contact Info) Description 04/30/2018 Abstract [facility] Conversion , Generic Conversion, Social History Tobacco Use Types Packs/Day Years Used Date Smoking Tobacco: Never Smokeless Tobacco: Never Alcohol Use Standard Drinks/Week Comments No 0 (1 standard drink = 0.6 oz pur e alcohol) Comments Unknown Sex and Gender Information Value Date Recorded Sex Assigned at Not on file Legal Sex Female 3:30 AM CDT Gender Identity Not on file Sexual Orientation Not on file 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, [address] [place], [place] [id number] Valentine Brown PA-C [facility] [address] [place], [place] [id number] 10/15/2024 9:30 AM CDT Office Visit [facility], [facility] [address] [place], [place] [address] Supa Miranda MD Three [facility]. [address] [place], [place] [address] documented as of this encounter Visit Diagnoses Not on filedocumented in this encounter Care Teams Senior Program Manager Relationship Specialty Start Date End Date Issac Escoto MD PCP - General FAMILY PRACTICE 11/25/15 05/09/18 Elizabeth Dempsey PA [facility]. [facility] [address] [place] [address] PCP - General PHYSICIAN CIVIL ENGINEERING PROJECT MANAGER 05/10/18 Domo Suarez MD [facility]. [facility] [address] [place], [place] [address] [place] Evaluator Transfer Students CARDIOVASCULAR DISEASE 11/25/15 documented as of this encounter
--- OUTSIDE RECORDS SUMMARY | 2024-08-02 16:27 | XMS_ITS | Referral Summary ---
Author Organization [facility] Address [address] [place] [address] Care Team Providers Care Physicist Light And Optics Name Role Phone Elizabeth Dempsey Primary Care Provider [phone] Source Comments [facility],non-owned Affiliates and Associated Physician Practices is amultiple site organization consisting of ambulatory clinics and hospital sitesin [place], [place], [place] and [place]. This disclosure is being madepursuant to the Care Everywhere program and may not contain all information available regarding this patient. Last updated 18.[facility] Allergies No known active allergies Medications * [...] 01/27/2022 12:27 PM CDT Plan of Treatment Not on file Care Teams Physicist Light And Optics Relationship Specialty Start Date End Date Elizabeth Dempsey PA [address] [phone] PCP - General Physician Provider Relations Representative 01/27/22
--- OUTSIDE RECORDS SUMMARY | 2024-08-02 16:27 | XMS_ITS | Encounter Summary ---
Author Organization [facility] Address [facility] [place] [address] Care Team Providers Care Access Rn Name Role Phone Issac Escoto MD Primary Care Provider Unavailable Domo Suarez MD Unavailable Elizabeth Dempsey Primary Care Provider Encounter Details Date Type Department Care Team (Late st Contact Info) Description 03/10/2015 Abstract [facility] [address] [place] [address] , Generic ConversionMD Social History Tobacco Use [...] st Contact Info) Description 08/16/2024 11:45 AM NECKTIES PAINTER [facility], [address] [place], [place] [id number] Valentine Brown PA-C [facility] [address] [place], [place] [phone] 10/15/2024 9:30 AM CDT Office [facility] [place] [address] [place] [address] Supa Miranda MD Three [facility]. [address] [place] [address] documented as of this encounter Visit Diagnoses Not on filedocumented in this encounter Care Teams Access Rn Relationship Specialty Start Date End Date Issac Escoto MD PCP - General FAMILY PRACTICE 11/25/15 05/09/18 Elizabeth Dempsey PA Three [facility]. [facility] [address] [place] [address] PCP - General PHYSICIAN IDEA MAN 05/10/18 Domo Suarez MD [facility]. [facility] [address] [place] [address] [place] [employer] Solution Architect CARDIOVASCULAR DISEASE 11/25/15 documented as of this encounter
--- OUTSIDE RECORDS SUMMARY | 2024-08-02 16:27 | XMS_ITS | Encounter Summary ---
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 [address] [place] [address] documented as of this encounter Procedures Procedure Name Priority Date/Time Associated Diagnosis Comments CBC (OUTSIDE LAB) Routine 09/05/2017 COMPREHENSIVE METABOLIC PANEL Routine 09/05/2017 CBC (OUTSIDE LAB) Routine 04/02/2016 COMPREHENSIVE METABOLIC PANEL Routine 04/02/2016 documented in this encounter Results * (ABNORMAL) COMPREHENSIVE METABOLIC PANEL (09/05/2017) SODIUM S/P/B 140 POTASSIUM S/P/B 3.9 CO2 24 CHLORIDE S/P/B 107 GLUCOSE 69 mg/dL CALCIUM S/P/B 8.8 BUN 6 CREATININE S/P/B 0.58 0.5 - 1.0 EGFR AFR. AMER. >60 <=90 EGFR NON-AFR. AMER. >60 <=90 ALKALINE PHOSPHATASE S/P/B 73 ALT 12 AST 16 BILIRUBIN TOTAL S/P/B 0.3 ALBUMIN S/P/B 3.2(A) 3.5 - 5.0 TOTAL PROTEIN S/P/B 5.6 09/05/2017 [facility] Abstract LABORATORY Final Result * CBC (OUTSIDE LAB) (09/05/2017) WBC 12.8 HGB 12.2 HCT 34.7 PLT 142 09/05/2017 us [facility] Abstract LAB-OUTSIDE/ABSTRACTED Final Result * COMPREHENSIVE METABOLIC PANEL (04/02/2016) SODIUM S/P/B 140 POTASSIUM S/P/B 3.6 CO2 24 CHLORIDE S/P/B 107 GLUCOSE 85 CALCIUM S/P/B 9.6 BUN 20 CREATININE S/P/B 0.79 0.5 - 1.0 EGFR AFR. AMER. >60 <=90 EGFR NON-AFR. AMER. >60 <=90 ALKALINE PHOSPHATASE S/P/B 68 ALT 12 AST 16 BILIRUBIN TOTAL S/P/B 0.4 ALBUMIN S/P/B 4.4 3.5 - 5.0 TOTAL PROTEIN S/P/B 7.1 04/02/2016 us [facility] Abstract LABORATORY Final Result * CBC (OUTSIDE LAB) (04/02/2016) WBC 7.5 HGB 13.8 HCT 38.4 PLT 162 04/02/2016 us Doc [facility] Abstract LAB-OUTSIDE/ABSTRACTED Final Result documented in this encounter Visit Diagnoses Not on filedocumented in this encounter Care Teams Ragman Relationship Specialty Start Date End Date Issac Escoto MD PCP - General FAMILY PRACTICE 11/25/15 05/09/18 Elizabeth Dempsey PA [address] [place] [address] PCP - General PHYSICIAN RETAIL SALESWORKER 05/10/18 Domo Suarez MD [address] [place], [place] [address] [place] Meeting Manager CARDIOVASCULAR DISEASE 11/25/15 documented as of this encounter
--- OUTSIDE RECORDS SUMMARY | 2024-08-02 16:27 | XMS_ITS | Encounter Summary ---
Author Organization [facility] Address [facility] [place] [address] Care Team Providers Care Personal Fitness Trainer Name Role Phone Issac Escoto MD Primary Care Provider Unavailable Domo Suarez MD Unavailable Elizabeth Dempsey Primary Care Provider [phone] Encounter Details Date Type Department Care Team (Late st Contact Info) Description 07/21/2015 Abstract [facility] Conversion , Generic ConversionMD Social History Tobacco Use [...] st Contact Info) Description 08/16/2024 11:45 AM PRINTER OPERATOR Office Visit [facility], [address] [place], [place] [id number] Valentine Brown PA-C Three [facility] [address] [place], [place] [phone] 10/15/2024 9:30 AM CDT Office Visit [facility], [address] [place], [place] [id number] Supa Miranda MD [facility]. [address] [place] [address] documented as of this encounter Visit Diagnoses Not on filedocumented in this encounter Care Teams Personal Fitness Trainer Relationship Specialty Start Date End Date Issac Escoto MD PCP - General FAMILY PRACTICE 11/25/15 05/09/18 Elizabeth Dempsey PA [facility]. [address] [place] [address] PCP - General PHYSICIAN HOME CARE CONSULTANT 05/10/18 Domo Suarez MD [facility]. [address] [place] [address] Basil Life Support Technician CARDIOVASCULAR DISEASE 11/25/15 documented as of this encounter
--- OUTSIDE RECORDS SUMMARY | 2024-08-02 16:27 | XMS_ITS | Encounter Summary ---
Author Organization [facility] Address [facility] [place] [address] Care Team Providers Care Band Saw Runner Name Role Phone Issac Escoto MD Primary Care Provider Unavailable Domo Suarez MD Unavailable Elizabeth Dempsey Primary Care Provider [phone] Encounter Details Date Type Department Care Team (Late st Contact Info) Description 06/16/2014 Abstract [facility] Conversion , Generic Conversion, Social [...] st Contact Info) Description 08/16/2024 11:45 AM WHEAT SHIPPER Office Visit [facility], [address] [place], [place] [phone] Valentine Brown PA-C Three [facility] [address] [place], [place] [phone] 10/15/2024 9:30 AM CDT Office Visit [facility], [address] [place], [place] [phone] Supa Miranda MD [facility]. [address] [place], [place] [address] documented as of this encounter Visit Diagnoses Not on filedocumented in this encounter Care Teams Band Saw Runner Relationship Specialty Start Date End Date Issac Escoto MD PCP - General FAMILY PRACTICE 11/25/15 05/09/18 Elizabeth Dempsey PA [facility]. [address] [place] [address] PCP - General PHYSICIAN BASEBALL SEWER HAND 05/10/18 Domo Suarez MD [facility]. [address] [place] [address] Basil Bathing Suit Maker CARDIOVASCULAR DISEASE 11/25/15 documented as of this encounter
--- OUTSIDE RECORDS SUMMARY | 2024-08-02 16:27 | XMS_ITS | Encounter Summary ---
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 [address] [place], [place] [address] documented as of this encounter Visit Diagnoses Not on filedocumented in this encounter Care Teams Elementary Classroom Teacher Relationship Specialty Start Date End Date Issac Escoto MD PCP - General FAMILY PRACTICE 11/25/15 05/09/18 Elizabeth Dempsey PA [facility]. [address] [place] [address] PCP - General PHYSICIAN MULTI CRAFT MAINTENANCE TECHNICIAN 05/10/18 Domo Suarez MD [facility]. [address] [place], [place] [address] [place] Grease Worker CARDIOVASCULAR DISEASE 11/25/15 documented as of this encounter
--- OUTSIDE RECORDS SUMMARY | 2024-08-02 16:27 | XMS_ITS | Encounter Summary ---
Author Organization [facility] Address [address] [place] [address] Care Team Providers Care Lime Burner Name Role Phone Sjc, External Provider Primary Care Provider U navailable Reason for Visit * Reason Comments Irregular Menses Polycystic Ovarian Syndrome Encounter Details Date Type Department Care Team (Late st Contact Info) Description 08/02/2024 10:00 AM POLISHER IMPLANT Office Visit [facility] BUSINESS DEVELOPMENT OFFICER - [address] [place] [address] [place] [address] [place] [address] PCOS (polycystic ovarian syndrome) (Primary Dx); Oligomenorrhea, unspecified type; Hirsutism; Overweight (BMI 25.0-29.9) Social History Tobacco Use Types Packs/Day Years [...] on file documented as of this encounter Last Filed Vital Signs Vital Sign Reading Time Taken Comments Blood Pressure 130/80 08/02/2024 10:06 AM POLISHER IMPLANT Pulse - - Temperature - - Respiratory Rate - - Oxygen Saturation - - Inhaled Oxygen Concentration - - Weight 78 kg (172 lb) 08/02/2024 10:06 AM POLISHER IMPLANT Height 162.6 cm (5' 4 ) 08/02/2024 10:06 AM POLISHER IMPLANT Body Mass Index 29.52 08/02/2024 10:06 AM POLISHER IMPLANT documented in this encounter Progress Notes * Judie Valverde MD - 08/02/2024 10:01 AM CST CC: PCOS HPI: Ana Cooper is a 29 y.o. presenting for PCOS discussion. Had Covid vaccine in May 2022 - was hospitalized after that. She did not have return of cycles until AugustSeptember 2022 after PP and Covid vaccine. Her prior dispatch lead did an US that showed cysts - thought she had PCOS based off of that and symptoms. Saw functional medicine specialist following this. Had lab work performed. She was then started on supplements. She then had return of menstrual cycles October 2022. She is currently supplementing with - lindsay organic oils. No inositol. Does help her cycles. One oilhas progesterone. LMP: Patient's last menstrual period was 07/20/2024 (exact date). Prior to this 32 days. Then 44 days. Period Intervals: 30-45 days depending on cycles. Period Duration: 3-5 days Period Quality: 1-3 heavy days, 1 TEBB Dysmenorrhea: Yes, not having to treat She is sexually active Family planning history: currently condoms, denies hormonal control Symptoms of hirsutism: + acne, + increased terminal hair growth Diet: started seeing a forensic medical examiner, specializes in PCOS. Has now seen another vest finisher. Cutting back on soda. Exercise: gym 3 times weekly - strength and boxing and classes. 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 ROS: As above. Denies nausea, vomiting, chest pain, shortness of breath, fevers, chills, headache, vision symptoms, dyspareunia, dysuria, changes in bowel habits, abdominal pain, or unintentional changes in weight. OB History Para Term AB Living 4 3 2 1 1 3 SAB IAB Ectopic Multiple Live Births 1 0 0 0 3 # Outcome Date GA Lbr Joel/2nd Weight Sex Type Anes PTL Lv 4 Term 01/07/21 38w5d 04:05 / 00:10 4060 g (8 lb 15.2 oz) M Vag-Spont None N OTIS Name: OLIVER COOPER Apgar1: 7 Apgar5: 9 3 SAB 12/2019 5w0d 2 Term 10/20/17 37w0d 3629 g (8 lb) M Vag-Spont EPI N OTIS Name: Leon 1 04/10/15 35w0d 2892 g (6 lb 6 oz) M Vag-Spont EPI N OTIS Comments: Induced for PreE Name: Kofi Past Medical History: Diagnosis Date Mitral valve prolapse Past Surgical History: Procedure Laterality Date ADENOIDECTOMY HX TONSILLECTOMY Social History Tobacco Use Smoking status: Never Smokeless tobacco: Not on file Substance Use Topics Alcohol use: Yes Comment: rarely Current Outpatient Medications: progesterone micronized (Prometrium) 200 mg Capsule, Take one capsule (200mg) by mouth at bedtime on cycle day 18-27., Disp: 30 Capsule, Rfl: 3 multivitamin (DAILY-JOSE ARMANDO) tablet, Take 1 Tablet by mouth daily., Disp: , Rfl: L. acidophilus/L. rhamnosus (PROBIOTIC ORAL), Take by mouth., Disp: , Rfl: No Known Allergies Physical Exam: Vitals: 08/02/24 1006 BP: 130/80 Weight: 78 kg (172 lb) Height: 5' 4 (1.626 m) Body mass index is 29.52 kg/m??. GEN: NAD, well-developed HEENT: NC/AT, MMM PULM: Regular breathing rate and effort CARDIAC: Regular rate, acyanotic NEURO: A&Ox3 Labs: No results found for this visit on 08/02/24. ASSESSMENT/PLAN: ICD-10-CM ICD-9-CM 1. PCOS (polycystic ovarian syndrome) E28.2 256.4 2. Oligomenorrhea, unspecified type N91.5 626.1 3. Hirsutism L68.0 704.1 4. Overweight (BMI 25.0-29.9) E66.3 278.02 1. PCOS (polycystic ovarian syndrome) (Primary) 2. Oligomenorrhea, unspecified type 3. Hirsutism -These are chronic conditions. -We discussed in detail the etiology, prognosis, and treatment options for PCOS. She is aware that PCOS is, in general terms, a hormonal imbalance that affects 5-10% of women. It has three blanco features 1) high levels of androgens 2) irregular menstrual periods 3) ovarian cysts. Two of three of these features are present to confirm diagnosis. Clinical features or lab evaluation can confirm hyperandrogenism. Hormonal abnormalities can include hyperestrogenism, related to chronic anovulation. Thisanovulation causes infrequent and often unpredictable menses. The hyperestrogenism is also a risk factor for endometrial hyperplasia and endometrial cancer, and so should not be left unchecked for long periods of time. There are several options for regulation of the menstrual cycle which include supportive progesterone therapy that mimics a normal menstrual cycle. Studies have shown that supplementing with myoinositol can also improve cycle regularity. Other hormonal abnormalities associated with PCOS include hyperandrogenism, which can lead to hirsutism, and insulin resistance. PCOS also increases the risks of metabolic syndrome, which should be screened for through PCP. For treatment of menstrual dysfunction, will start progesterone 200mg QHS from cycle day 18-27. If ovulation begins to occur on this dosage, will then adjust to P+3-12. She is aware that this is working to regulate her cycle and is not contraceptive. She was given a handout on natural family-planning. Recommend supplementing with myoinositol 2 grams BID. The other important treatment is weight loss, even a small loss of 5-10% can be quite beneficial. Recommend optimizing diet as discussed as well starting a moderate-aerobic exercise plan. She will have lab work performed through functional medicine. 4. Overweight (BMI 25.0-29.9) -This is a chronic condition. We had an extensive discussion in regard to metabolic dysfunction andweight gain in the setting of PCOS. We reviewed optimization of diet and exercise. She is very motivated to make changes and is actively working in this area. Follow-up in 4 months. Judie Valverde MD TOBACCO COUNSELING She is not a tobacco/nicotine user. SHER IMPLANT documented in this encounter Miscellaneous Notes * Patient Instructions - Judie Valverde MD - 08/02/2024 10:58 AM CST Welcome to our practice! We look forward to taking care of you in the coming years! Things to consider: Your diet significantly affects how you feel, how you sleep, your hormones, your risk for future disease, etc. FOOD IS MEDICINE. My recommendations are to eat as real food, whole food, close to the source as possible. This should guide your decisions in the grocery store. You want to minimize addedsugar (at least less than 25g per day), processed foods, low quality lactose, and gluten. If you can choose organic products, these are much better for you (Rd, Sap Pi Architect Yajaira Hubbard have better priced organic options). Remember foods marketed as natural are not always healthy. You must get in the habit of reading all labels. These are the recommendations. It is your responsibility to make good choices. Vitamin D (up to 4000 IU daily) is a supplement well worth it. Don't forget to look at the labels on supplements. Regular exercise is also very important for your overall health, reducing painful periods, improving mood and to build strong bones and decrease your risk of developing osteoporosis later in life. Your Care Plan: You can progesterone to stimulate natural menstrual cycles. To do this, take on cycle day 18-27. You should then have onset of a period and continue to cycle monthly with this regimen. Sometimes, this will help reorganize your hormones so that you start to cycle naturally. Supplements you can consider: myoinositol 2 gm twice daily (this has the most research in the setting of PCOS), N-acetyl cystine, castor oil packs (ex: [employer] castor oil pack kit), Canadensis 3's (quality matters - you do not want this product to be rancid). SHER IMPLANT documented in this encounter Plan of Treatment Upcoming Encounters Date Type Department Care Team (Late st Contact Info) Description 11/29/2024 12:15 PM CDT Office Visit [facility] BUSINESS DEVELOPMENT OFFICER - [address] [place] [phone] [place] [address] [facility] [place] [address] [place] [address] documented as of this encounter Visit Diagnoses Diagnosis PCOS (polycystic ovarian syndrome)- Primary Polycystic ovaries Oligomenorrhea, unspecified type Hirsutism Overweight (BMI 25.0-29.9) Overweight documented in this encounter Care Teams Lime Burner Relationship Specialty Start Date End Date [facility], External Provider [address] [place] [address] PCP - General 02/21/19 documented as of this encounter
[2024-08-02 16:34] VITALS: BP 129/77; PULSE 65; RESP 16; TEMP 36.7; O2SAT 100
--- NOTE | 2024-08-02 17:14 | ED_ITS ---
HPI - General Adult General Chief complaint: Eye Problems Stated complaint: eye pain Source: patient Mode of arrival: ambulatory Limitations: no limitations History of Present Illness HPI narrative: Patient presents for evaluation of pressure behind the right eye. Symptom onset today at approximately noon. She has intermittent floaters in the right eye. She also feels like the right side of her face is swollen. She was diagnosed with sinusitis at the end of last month. She was treated with cefdinir. She was initially having some sinus drainage but that improved. She is not having any sinus drainage with her current symptoms. She does not were contacts or glasses. She reports chills but states that the right side of her face feels hot . She has a history of mitral valve prolapse. She was pr eviously experiencing episodes of SVT but those resolved without intervention. It sounds like it was thought that these episodes were related to a viral illness. Related Data Allergies Allergy/AdvReac Type Severity Reaction Status Date / Time No Known Allergies Allergy Verified 08/02/24 16:36 Review of Systems Review of Systems: CONSTITUTIONAL: Denies fever, chills, or sweats. EYES: Reports floaters on the right. Denies other visual disturbance. ENT: Reports pressure behind the right eye. Reports swelling in the right side of her face. Denies sinus drainage. CARDIOVASCULAR: Denies chest pain, palpitations, or edema. RESPIRATORY: Denies cough or dyspnea. GASTROINTESTINAL: Denies abdominal pain, nausea, vomiting, or diarrhea. GENITOURINARY: Denies dysuria or hematuria. SKIN: Denies rash or itching. MUSCULOSKELETAL: Denies back pain, joint pain, or myalgia. NEUROLOGIC: reports pressure behind the right eye. Denies numbness, dizziness, or weakness. PSYCHIATRIC: Denies anxiety or depression. [facility] Past Medical History Medical History SVT (supraventricular tachycardia) Mitral valve prolapse Surgical History Surgical History No pertinent past surgical history Family History Family History (Updated 08/02/24 @ 17:18 by VITALY Carroll, EDD) Mother Family history non-contributory Social History Social History Substance use: never Gender identity (if verbalized by the patient): Female Exam Narrative: GENERAL: Well-appearing, well-nourished, and in no acute distress. HEAD: Normocephalic, atraumatic. EYES: PERRLA and EOMI. ENT: Nares clear, no rhinorrhea or epistaxis. Mucous membranes moist. Oropharynx without tonsillar hypertrophy exudate or other lesions. Bilateral TMs pearly sheppard nonbulging NECK: Supple. No adenopathy or masses. No carotid bruits or JVD CHEST: Clear to auscultation. No respiratory distress. No wheezes rales or rhonchi HEART: Regular rate and rhythm. No murmur heard. Normal peripheral pulses. ABDOMEN: Soft, nontender, nondistended, normal active bowel sounds. EXTREMITIES: Normal range of motion. No edema. SKIN: Warm, dry, no rash. NEURO: No focal deficits. Alert and oriented x3. PSYCH: Normal mood and affect. Course Course Emergency Course: This is a 29-year-old female who presented for evaluation of pressure behind the right eye with associated visual disturbance. I believe she would benefit from CT imaging. Unfortunately it sounds like she has difficulty getting in to see her primary care provider. Through shared decision making opted to transfer her to the hospital for further evaluation. [facility] is her facility of choice. I contacted the emergency department at [facility] and spoke with Dr. Hinkle, who accepted pt for transfer there. Pt transferred via private vehicle. Level of Care: Express Care Visit Vital Signs Vital signs: Vital Signs Temperature 36.7 C 08/02/24 16:34 Pulse Rate 65 08/02/24 16:34 Respiratory Rate 16 08/02/24 16:34 Blood Pressure 129/77 08/02/24 16:34 Pulse Oximetry 100 08/02/24 16:34 Oxygen Delivery Room Air 08/02/24 16:34 Temperature 36.7 C 08/02/24 16:34 Pulse Rate 65 08/02/24 16:34 Respiratory Rate 16 08/02/24 16:34 Blood Pressure 129/77 08/02/24 16:34 Pulse Oximetry 100 08/02/24 16:34 Oxygen Delivery Room Air 08/02/24 16:34 Medical Decision Making Vital Signs Vital Signs: Vital Signs Temperature 36.7 C 08/02/24 16:34 Pulse Rate 65 08/02/24 16:34 Respiratory Rate 16 08/02/24 16:34 Blood Pressure 129/77 08/02/24 16:34 Pulse Oximetry 100 08/02/24 16:34 Oxygen Delivery Room Air 08/02/24 16:34 Temperature 36.7 C 08/02/24 16:34 Pulse Rate 65 08/02/24 16:34 Respiratory Rate 16 08/02/24 16:34 Blood Pressure 129/77 08/02/24 16:34 Pulse Oximetry 100 08/02/24 16:34 Oxygen Delivery Room Air 08/02/24 16:34 Discharge Plan Discharge Clinical Impression: Visual disturbance Patient Disposition: Acute Care Hospital Condition: Stable Patient Language: Ugandan Follow-up/Referrals: Elizabeth Dempsey [Other] Time of Disposition: 17:13
== END 2024-08-02 17:17 | disposition short-term general hospital (02) ==
PROVIDERS: Emergency Provider Nurse Practitioner
DX: H53.9 Unspecified visual disturbance (principal); I34.1 Nonrheumatic mitral (valve) prolapse
CPT/HCPCS: 99212; G0463